=== PATIENT | female | born 1955 | race Caucasian/White ===

== ENCOUNTER 2016-11-14 19:35 | Emergency (ER) | payer SELFPAY ==
[~2016-11-14] VITALS: Ht 177.8 cm; Wt 90.4 kg
[~2016-11-14 19:35] MED LIST: BACT800T5 PO; CEPH-460 PO; LISI40TA PO; LORA-474 PO; OMEP20TA PO; SIMV80TA PO; ZOLO100T PO
[2016-11-14 20:08] VITALS: BP 124/85; PULSE 79; RESP 16; TEMP 98.3; O2SAT 97
[2016-11-14] MEDS ORDERED: HYDR12.56 PO (20:19)
[2016-11-14] MEDS ORDERED: IBUP400T20 PO (20:28)
[2016-11-14] MEDS ORDERED: HYDR-3533 PO (20:28)
--- NOTE | 2016-11-14 20:28 | PD ---
HPI Chief Complaint: Back/ Neck Pain or Injury Time Seen by Provider: 20:11 Travel History International Travel<30 days: No Contact w/Intl Traveler<30days: No Traveled to known affect area: No History of Present Illness HPI 7-year-old woman presents emergency Department back pain. Patient worse in her lower left back and Radiates into the Buttock. Symptoms started a couple days ago. She's had trouble with her back one time in the remote past. She's not had any surgeries or fractures in her back. She works at [employer] on her feet a lot. She was reaching up to 100 and some other food before this started but no other obvious injuries. No new heavy lifting or new increased activity. History Past Medical History Narrative Medical Hypertension Anxiety/depression GERD PNEUMOCCOCAL Vaccine (Year): 1 Menopausal: Yes : 10 Para: 4 Dilation and Curettage (D&C): Yes (X2) Social History Alcohol Use: Yes (RARE) Tobacco Use: No (AGE 18) Allergies-Medications (Allergen,Severity, Reaction): Coded Allergies: Baring (Verified Allergy, Severe, hives/sob, 11/14/16) Demerol (Verified Adverse Reaction, Severe, insides shake, 11/14/16) Reported Meds & Prescriptions Reported Meds & Active Scripts Active Reported Hydrochlorothiazide 12.5 Mg Tab 12.5 Mg PO DAILY Omeprazole 20 Mg Tab 20 Mg PO DAILY Zoloft (Sertraline HCl) 100 Mg Tab 100 Mg PO DAILY Simvastatin 80 Mg Tab 80 Mg PO DAILY Lisinopril 40 Mg Tab 40 Mg PO DAILY Review of Systems Except as stated in HPI: all other systems reviewed are Neg Physical Exam Narrative GENERAL: 61 year-old woman, no acute distress. SKIN: Warm and dry. CARDIOVASCULAR: Warm and well perfused. RESPIRATORY: Normal rate and effort. MUSCULOSKELETAL: Normal appearance of back and bilateral lower extremities. No ecchymosis, swelling, bruising. No rashes. Normal muscle bulk and tone. She has tenderness palpation the lower SI joint and in the lower buttock. NEUROLOGICAL: Strength full 5/5 and equal in bilateral lower extremities in proximal and distal muscle groups. 5/5 in large toe flexion and extension. Sensation is intact to light touch throughout. Reflexes symmetric. No clonus. Positive seated straight leg raise on the left. PSYCHIATRIC: Appropriate mood and affect; insight and judgment normal. Data Data Last Documented VS Vital Signs Date Time Temp Pulse Resp B/P Pulse Ox O2 Delivery O2 Flow Rate FiO2 11/14/16 20:08 98.3 79 16 124/85 97 MDM Medical Decision Making Medical Screen Exam Complete: Yes Emergency Medical Condition: Yes Differential Diagnosis Back strain or sprain, sciatica, herniated disc, other Narrative Course Medical decision making Acute low back pain on the left. Looks well. Positive seated straight leg raise. Recommend supportive treatment NSAIDs and Lortab. Diagnosis Primary Impression: Acute low back pain Additional Instructions: Take Lortab as needed for pain. Take ibuprofen as prescribed. Follow-up with your primary doctor in 2-4 days. Return to the emergency department for any new or worsening symptoms. Med/Other Pt SpecificInfo: Prescription(s) given Scripts Ibuprofen 400 Mg Oxg674 Mg PO Q8H 7 Days Ref 0 Prov:Gonzalo Quinones MD 11/14/16 Hydrocodone-Acetaminophen (Lortab)5-325 Mg Tab1-2 Tab PO Q6H PRN (PAIN) #20 TAB Prov:Gonzalo Quinones MD 11/14/16 Disposition: 01 DISCHARGE HOME Condition: Stable Gonzalo Quinones MD Nov 14, 2016 20:28
[2016-11-14] MEDS ORDERED: ACETAMINOPHEN/HYDROcodone 325 MG/5 MG TAB PO ONE (20:30)
[2016-11-14] MEDS ORDERED: IBUPROFEN 400 MG TAB PO ONE (20:30)
== END 2016-11-14 21:16 | disposition home or self-care (01) ==
LOC: PHEFT 19:35
DX: M54.5 Low back pain (principal); I10 Essential (primary) hypertension; Z86.59 Personal history of other mental and behavioral disorders; Z87.19 Personal history of other diseases of the digestive system
CPT/HCPCS: 99283

== ENCOUNTER 2017-06-03 13:15 | Emergency (ER) | payer OTHER ==
[~2017-06-03] VITALS: Ht 175.3 cm; Wt 91.0 kg
[~2017-06-03 13:15] MED LIST changes: -BACT800T5 PO; -CEPH-460 PO; +HYDR-3533 PO; +HYDR12.56 PO; +IBUP1TAB5 PO; -LORA-474 PO; -OMEP20TA PO; +OMEP20TA93 PO
[2017-06-03 13:25] VITALS: BP 121/72; PULSE 82; RESP 16; TEMP 98; O2SAT 96
[2017-06-03] MEDS ORDERED: LORA-474 PO (13:39)
[2017-06-03] MEDS ORDERED: ASPI-516 CHEW (13:39)
[2017-06-03] MEDS ORDERED: ROSU40 PO (13:39)
--- NOTE | 2017-06-03 14:07 | RADRPT ---
EXAM DATE/TIME: 06/03/2017 13:42 [facility] COMPARISON: No previous studies available for comparison. INDICATIONS : Right ankle pain post fall MEDICAL HISTORY : None. SURGICAL HISTORY : Bunion and bone spur removed ENCOUNTER: Initial ACUITY: 1 day PAIN SCORE: 8/10 LOCATION: Right lateral ankle FINDINGS: A nondisplaced fracture is noted along the inferior tip of the right fibula. There is overlying soft tissue swelling. Ankle mortise is well-maintained. There is no significant arthropathy. CONCLUSION: Nondisplaced fracture along the inferior tip of the right fibula with associated soft tissue swelling . Trell Whipple MD on June 03, 2017 at 14:04 Board Certified Radiologist. This report was verified electronically.
--- NOTE | 2017-06-03 14:09 | RADRPT ---
EXAM DATE/TIME: 06/03/2017 13:42 [facility] COMPARISON: ANKLE RIGHT COMPLETE ([id number]), June 03, 2017, 13:42. INDICATIONS : Right foot pain post fall. MEDICAL HISTORY : None. SURGICAL HISTORY : Bunion and bone spurs removed ENCOUNTER: Initial ACUITY: 1 day PAIN SCORE: 7/10 LOCATION: Right lateral foot FINDINGS: Nondisplaced fracture of the right fibular tip is noted. Bony structures of foot are intact. Postsurgical screws are identified in the first metatarsal. Perio steal heel spurs are noted at the Achilles tendon and plantar tendon attachment on the calcaneus. There is no significant small joint arthropathy. CONCLUSION: Intact bony structures of the right foot. Nondisplaced fracture of the distal right fibular tip. Trell Whipple MD on June 03, 2017 at 14:04 Board Certified Radiologist. This report was verified electronically.
[2017-06-03] MEDS ORDERED: IBUP1TAB7 PO ×2 (14:15→14:31)
[2017-06-03] MEDS ORDERED: HYDR-3516 PO ×2 (14:15→14:31)
--- NOTE | 2017-06-03 14:37 | PD ---
HPI Chief Complaint: Injury Time Seen by Provider: 13:45 Travel History International Travel<30 days: No Contact w/Intl Traveler<30days: No Traveled to known affect area: No History of Present Illness HPI 61-year-old female that presents to the ED for evaluation of injury to her right ankle. Per patient she lost her footing and fell about 3 stairs. Per patient and her ankle went inwards. She is able to ambulate with some discomfort. She denies any urinary or bowel movement issues. No headache. No back pain or neck pain. No arm pain. No leg pain on the left side. Only pain is to the lateral aspect of the right ankle. Swelling noted. Pain with weightbearing. Patient was able to bear weight on her way to the room but with a limp. This injury happened this morning. Has not seen anybody for this. Per patient she does follow with a local orthopedic doctor and actually has an appointment in the next couple weeks for a knee issue. PFSH Past Medical History Hx Anticoagulant Therapy: Yes (BABY ASA DAILY) Anemia: Yes Arthritis: Yes Asthma: No Autoimmune Disease: No Anxiety: Yes Depression: Yes Heart Rhythm Problems: No Cancer: Yes (CERVICAL DYSPLASIA) Cardiovascular Problems: Yes (HTN, CHOL) High Cholesterol: Yes Chest Pain: No Congestive Heart Failure: No COPD: No Cerebrovascular Accident: No Diabetes: No Diminished Hearing: No Gastrointestinal Disorders: Yes GERD: Yes Glaucoma: No Headaches: Yes Hepatitis: No Hiatal Hernia: No Hypertension: Yes Kidney Stones: No Musculoskeletal: Yes Neurologic: No Reproductive: Yes Respiratory: No Immunizations Current: No Myocardial Infarction: No Pancreatitis: Yes Pneumonia: Yes Renal Failure: No Seizures: No Sleep Apnea: No Thyroid Disease: No Ulcer: No PNEUMOCCOCAL Vaccine (Year): 1 ?: Not Menopausal: Yes : 10 Para: 4 Miscarriage: 1 : 5 Dilation and Curettage (D&C): Yes (X2) Past Surgical History Abdominal Surgery: Yes (SPLENECTOMY) AICD: No Appendectomy: Yes Cardiac Surgery: No Cholecystectomy: Yes Ear Surgery: No Endocrine Surgery: No Eye Surgery: No Genitourinary Surgery: No Gynecologic Surgery: Yes Hysterectomy: Yes Neurologic Surgery: No Oral Surgery: No Pacemaker: No Thoracic Surgery: No Tonsillectomy: Yes Other Surgery: Yes (LEFT SURGERY) Social History Alcohol Use: Yes (RARE) Tobacco Use: No (AGE 18) Substance Use: No Allergies-Medications (Allergen,Severity, Reaction): Coded Allergies: strawberry (Unverified Allergy, Severe, hives/sob, 06/03/17) meperidine (Unverified Adverse Reaction, Severe, insides shake, 06/03/17) Reported Meds & Prescriptions Reported Meds & Active Scripts Active Ibuprofen 800 Mg Tab 800 Mg PO Q8H PRN Hydrocodone-Acetaminophen 5-325 mg Tab 1 Tab PO Q6H PRN Hydrocodone-Acetamin 5-325 mg (Hydrocodone/Acetaminophen) 5 Mg-325 Mg Tablet 1 Tab PO Q6HR PRN Ibuprofen 800 Mg Tab 800 Mg PO Q8H PRN Reported Aspirin 81 Mg Chew 81 Mg CHEW DAILY Ativan (Lorazepam) 1 Mg Tab 1 Mg PO DAILY PRN Crestor (Rosuvastatin Calcium) 40 Mg Tab 40 Mg PO DAILY Hydrochlorothiazide 12.5 Mg Tab 25 Mg PO DAILY Omeprazole 20 Mg Tab 20 Mg PO DAILY Zoloft (Sertraline HCl) 100 Mg Tab 100 Mg PO DAILY Lisinopril 40 Mg Tab 40 Mg PO DAILY Review of Systems Except as stated in HPI: all other systems reviewed are Neg Physical Exam Narrative GENERAL: SKIN: Warm and dry. HEAD: Atraumatic. Normocephalic. EYES: Pupils equal and round. No scleral icterus. No injection or drainage. ENT: No nasal bleeding or discharge. Mucous membranes pink and moist. Tongue is midline. No uvula deviation. NECK: Trachea midline. No JVD. CARDIOVASCULAR: Regular rate and rhythm. RESPIRATORY: No accessory muscle use. Clear to auscultation. Breath sounds equal bilaterally. GASTROINTESTINAL: Abdomen soft, non-tender, nondistended. Hepatic and splenic margins not palpable. MUSCULOSKELETAL: Extremities without clubbing, cyanosis, or edema. No obvious deformities. Patient has obvious swelling and pain on the right lateral malleolus. Very tender to touch in this area. No medial malleolar pain. Full range of motion of the ankle with some pain with eversion and inversion. Pain with weightbearing. 2+ pulses bilaterally. Sensation intact bilaterally. Good capillary refill. NEUROLOGICAL: Awake and alert. No obvious cranial nerve deficits. Motor grossly within normal limits. Five out of 5 muscle strength in the arms and legs. Normal speech. PSYCHIATRIC: Appropriate mood and affect; insight and judgment normal. Data Data Last Documented VS Vital Signs Date Time Temp Pulse Resp B/P (MAP) Pulse Ox O2 Delivery O2 Flow Rate FiO2 06/03/17 13:25 98.0 82 16 121/72 (88) 96 Orders Orders Ankle, Complete ([id number]) (06/03/17 13:36) Foot, Complete ([id number]) (06/03/17 13:36) Ice/Cold Pack (06/03/17 13:36) Crutches (06/03/17 13:36) Splint Or Brace Apply/Monitor (06/03/17 14:14) Radiology Film Requests (06/03/17 ) Ed Discharge Order (06/03/17 14:30) [facility] Medical Decision Making Medical Screen Exam Complete: Yes Emergency Medical Condition: Yes Medical Record Reviewed: Yes Interpretation(s) Last Impressions Foot X-Ray 06/03/171335 Signed Impressions: Service Date/Time: Saturday, June 03, 2017 13:42 - CONCLUSION: Intact bony structures of the right foot. Nondisplaced fracture of the distal right fibular tip. Trell Whipple MD Ankle X-Ray 06/03/171335 Signed Impressions: Service Date/Time: Saturday, June 03, 2017 13:42 - CONCLUSION: Nondisplaced fracture along the inferior tip of the right fibula with associated soft tissue swelling. Trell Whipple MD Differential Diagnosis Fracture versus sprain versus strain versus bruise versus contusion Narrative Course 61-year-old female that presents to the ED for evaluation of injury to her right ankle. Patient was properly examined and was found to have signs and symptoms consistent appears to be bony injury. X-ray was ordered. X-ray was positive for fracture. Patient was told results and agrees with plan. At this time does not appear to be a surgical case and patient will likely need splinting and follow-up outpatient. This was discussed with my attending Dr. Lee for agrees with plan. Patient was given a prescription for Lortab and ibuprofen. Given a splint and crutches. Given prescription for walker. I strongly recommend that she follows up with her orthopedic doctor next week if possible. See ED worsening symptoms. Follow with PCP. Diagnosis Primary Impression: Fracture of distal fibula Qualified Codes: S82.831A - Other fracture of upper and lower end of right fibula, initial encounter for closed fracture Patient Instructions: General Instructions Additional Instructions: Take medications as prescribed. Follow-up with orthopedic doctor of your choice. See ED for any worsening symptoms. Do not drink or drive while taking pain medication. Apply ice or heat as needed for pain Med/Other Pt SpecificInfo: Prescription(s) given Scripts Ibuprofen (Ibuprofen) 800 Mg Tab 800 MG PO Q8H Y for PAIN SCALE 1 TO 10, #20 TAB 0 Refills Prov: Yulia Schmidt MD 06/03/17 Hydrocodone-Acetaminophen (Hydrocodone-Acetaminophen) 5-325 mg Tab 1 TAB PO Q6H Y for PAIN, #12 TAB 0 Refills Prov: Yulia Schmidt MD 06/03/17 Hydrocodone/Acetaminophen (Hydrocodone-Acetamin 5-325 mg) 5 Mg-325 Mg Tablet 1 TAB PO Q6HR Y for PAIN SCALE 1 TO 10, #12 Prov: Yulia Schmidt MD 06/03/17 Ibuprofen (Ibuprofen) 800 Mg Tab 800 MG PO Q8H Y for PAIN SCALE 1 TO 10, #15 TAB 0 Refills Prov: Yulia Schmidt MD 06/03/17 Disposition: 01 DISCHARGE HOME Condition: Stable Curtis Chaudhry Jun 03, 2017 14:37
[2017-06-03] MEDS ORDERED: GETGO ROLLING W1 MI1 (14:58)
== END 2017-06-03 15:14 | disposition home or self-care (01) ==
LOC: PHEFT 13:15
DX: S82.831A Other fracture of upper and lower end of right fibula, initial encounter for closed fracture (principal); E78.00 Pure hypercholesterolemia, unspecified; I10 Essential (primary) hypertension; K21.9 Gastro-esophageal reflux disease without esophagitis; W10.9XXA Fall (on) (from) unspecified stairs and steps, initial encounter
CPT/HCPCS: 29515; 73610; 73630; 99283; E0113